=== PATIENT | female | born 1960 ===

== ENCOUNTER 2021-06-05 05:39 | Day surgery (SDC) | payer OTHER ==
[~2021-06-05 05:39] MED LIST: NORVASC2.5 MG PO; TENORMIN50 M1 PO; ZESTRIL10 M1 PO
== END 2021-06-05 12:25 | disposition home or self-care (01) ==
LOC: CIR.AMB 05:39
PROVIDERS: ATTEND Surgery
DX: K80.12 Calculus of gallbladder with acute and chronic cholecystitis without obstruction (principal); I10 Essential (primary) hypertension; M81.0 Age-related osteoporosis without current pathological fracture